=== PATIENT | female | born 1970 | race Caucasian/White ===

== ENCOUNTER 2018-11-26 02:38 | Emergency (ER) | payer MEDICAID | END 2018-11-26 03:38 | disposition home or self-care (01) | LOC: E/R 02:38 | DX: F41.9 Anxiety disorder, unspecified (principal); J45.909 Unspecified asthma, uncomplicated; Z87.891 Personal history of nicotine dependence | CPT/HCPCS: 99283; Z7502 ==

== ENCOUNTER 2018-12-03 02:35 | Emergency (ER) | payer SELFPAY, MEDICAID | END 2018-12-03 02:50 | disposition left against medical advice (07) | LOC: FTE 02:35 | DX: Z53.21 Procedure and treatment not carried out due to patient leaving prior to being seen by health care provider (principal) ==